=== PATIENT | female | born 1965 | race Caucasian/White ===

== ENCOUNTER 2019-12-22 12:59 | Outpatient (CLI) | payer MEDICARE, MEDICAID, SELFPAY ==
--- NOTE | 2019-12-22 13:45 | MR_ITS ---
WS: [id number] MRI LEFT SHOULDER NONCONTRAST TECHNIQUE: Sagittal T2, coronal T1, T2 and proton density imaging. Axial gradient PDE imaging. CLINICAL INFORMATION: pain COMPARISON: None. FINDINGS: Moderate degenerative arthritis at the AC joint. Small subacromial/subdeltoid effusion. Edema at the AC joint. Slight downsloping of the acromion. Mild thinning of the supraspinatus tendon distally with mild T2 signal normality consistent with tendinopathy. Fluid signal abnormality along t he superficial distal tendon fibers suspicious for small bursal surface tear. Normal infraspinatus. N ormal teres minor. Subscapularis tendon is normal distally. Normal biceps tendon in the bicipital groove. Mild degenerative fraying of the glenoid labrum. No emerita ss labral tears. MR/MR shoulder LT wo con* [id number] IMPRESSION: 1. Moderate degenerative arthritis at the AC joint with mild downsloping of th e acromion. Fluid within the subacromial/subdeltoid bursa. 2. Narrowing of the subacromial space with mild thinning of the distal suprasp inatus tendon with T2 signal abnormality consistent with tendinopathy. Small am ount of fluid along the distal tendon sheath suspicious for a tiny bursal surfa ce tear. 3. No full-thickness rotator cuff tears. 4. Rotator cuff is otherwise normal in appearance. 5. Normal biceps in the bicipital groove.
== END 2019-12-22 13:00 | disposition home or self-care (01) ==
LOC: RADSHAW 13:04
PROVIDERS: Family Provider Student in an Organized Health Care Education/Training Program; PCP Family Medicine; Visit Provider Specialist
DX: M19.012 Primary osteoarthritis, left shoulder (principal); M25.512 Pain in left shoulder
CPT/HCPCS: 73221

== ENCOUNTER → 2020-01-18 10:04 | Outpatient (BNVA) | payer MEDICARE, MEDICAID, SELFPAY | PROVIDERS: Family Provider Student in an Organized Health Care Education/Training Program; PCP Family Medicine; Visit Provider Specialist | DX: G43.909 Migraine, unspecified, not intractable, without status migrainosus (principal); G43.711 Chronic migraine without aura, intractable, with status migrainosus | CPT/HCPCS: 99203 ==

== ENCOUNTER → 2020-01-25 14:33 | Outpatient (BNVA) | payer MEDICARE, MEDICAID, SELFPAY | PROVIDERS: Family Provider Student in an Organized Health Care Education/Training Program; PCP Family Medicine; Visit Provider Specialist | DX: M54.81 Occipital neuralgia (principal); G43.711 Chronic migraine without aura, intractable, with status migrainosus; Z79.891 Long term (current) use of opiate analgesic | CPT/HCPCS: 64450; 99212; J1030; J3490 ==

== ENCOUNTER → 2020-04-28 10:12 | Outpatient (BNVA) | payer MEDICARE, MEDICAID, SELFPAY | PROVIDERS: Family Provider Student in an Organized Health Care Education/Training Program; PCP Family Medicine; Visit Provider Specialist | DX: Z98.890 Other specified postprocedural states (principal) | CPT/HCPCS: 73502 ==

== ENCOUNTER → 2020-05-30 08:26 | Outpatient (BNVA) | payer MEDICARE, MEDICAID, SELFPAY | PROVIDERS: Family Provider Student in an Organized Health Care Education/Training Program; PCP Family Medicine; Visit Provider Internal Medicine | DX: Z12.11 Encounter for screening for malignant neoplasm of colon (principal) | CPT/HCPCS: 87635 ==

== ENCOUNTER 2020-06-01 06:01 | Day surgery (SDC) | payer MEDICARE, MEDICAID, SELFPAY ==
[2020-05-30 14:19] VITALS: BMI 36.0
[2020-06-01 06:31] VITALS: TEMP 36.3; BMI 36.0
--- NOTE | 2020-06-01 06:32 | W.PM.OPSFHP ---
Same Day Surgery H&P Indication for Procedure/HPI DATE OF PROCEDURE: June 01, 2020 CHIEF COMPLAINT/INDICATIONFOR SURGICAL PROCEDURE: I had history of ulcer in my stomach PREOP DIAGNOSIS: History of peptic ulcer disease and screening colonoscopy PLANNED PROCEDRUE: Operation Date: 06/01/20 07:00 Proposed Procedures p EGD 91245 K21.9(Not Applicable) - Grey Campbell MD s Colonoscopy 31323 Z12.11(Not Applicable) - Grey Campbell MD Previous clinic visit ; patient comes today as follow-up and has a current weight of 238 pound, she reports that she lost about 1 pound since last encounter,, she was prescribed phentermine but she did not have the medicine yet, patient continues to show interest in weight loss and she reports history of gastric ulcer and has been on PPI therapy, patient also reports that she did not have a screening colonoscopy before. She denies any hematemesis or bleeding per rectum. Interim history 06/01/2020 Patient comes today to the GI lab with the plan to have a diagnostic EGD and screening colonoscopy. Patient reports to me that she is not taking phentermine any more. ROS All systems have been reviewed negative except as per the above or per problem list Medications/Allergies* Home Medications Medication Instructions Recorded Confirmed Type duloxetine 60 mg capsule,delayed 60 mg PO BID 12/09/19 05/30/20 History release lisinopril 20 1 tab PO BID 12/09/19 05/30/20 History mg-hydrochlorothiazide 25 mg tablet oxycodone-acetaminophen 10 mg-325 1 tab PO Q8H PRN 12/09/19 05/30/20 History mg tablet pravastatin 10 mg tablet 10 mg PO DAILY 12/09/19 05/30/20 History omeprazole 20 mg capsule,delayed 20 mg PO DAILY 03/24/20 05/30/20 History release dulaglutide 0.75 mg/0.5 mL 0.75 mg SUBCUT .weekly ml 04/28/20 05/30/20 History subcutaneous pen injector Allergies/Adverse Reactions Allergy/AdvReac Type Severity Reaction Status Date / Time amitriptyline Allergy unknown Verified 06/01/20 06:33 atorvastatin [From Lipitor] Allergy unknown Verified 06/01/20 06:33 carisoprodol [From Soma] Allergy unknown Verified 06/01/20 06:33 erythromycin base Allergy unknown Verified 06/01/20 06:33 glycopyrrolate Allergy unknown Verified 06/01/20 06:33 [From Utibron Neohaler] indacaterol Allergy unknown Verified 06/01/20 06:33 [From Utibron Neohaler] morphine Allergy unknown Verified 06/01/20 06:33 simvastatin [From Zocor] Allergy unknown Verified 06/01/20 06:33 Fxkbugo-Fup-Bnp Reductase Allergy unknown Verified 06/01/20 06:33 Inhibitor topiramate [From Topamax] Allergy unknown Verified 06/01/20 06:33 Pertinent History/Comorbid Conditions* Medical History (Updated 05/17/20 @ 08:34 by Kristin Su MD) Accelerated essential hypertension Avascular necrosis of bone of right hip Diabetes GERD (gastroesophageal reflux disease) History of gastric ulcer Obesity Rheumatoid arthritis Surgical History (Updated 04/28/20 @ 12:04 by Kristin Su MD) History of right hip replacement History of surgery on wrist Hx of cholecystectomy Hx of shoulder surgery Family History (Updated 12/09/19 @ 14:12 by Isaura Page LPN) Diabetes CAD (coronary artery disease) Hypertension Social History Smoking and tobacco status: never smoked Alcohol intake: never Pertinent Exam Findings alert, oriented x 3, clear to auscultation bilaterally, regular rate & rhythm and procedure specific exam findings (Abdominal examination nontender nondistended soft, obese) Recommendations Surgery/Procedure today (Diagnostic EGD with possible biopsy and colonoscopy with possible biopsy and possible polypectomy. Informed consent per) Coding Level of Care Code Acute Flood Control Engineer for Nelson Singh
[2020-06-01] MEDS: sodium chloride 0.9% 1,000 ML 30 ML IV (06:40)
--- NOTE | 2020-06-01 06:43 | ANES.PREANE2 ---
Pre-Anesthetic Assessment Pre-Anesthetic Assessment: Height/Weight: Height 1.7 m Weight 104.326 kg Temp 97.3 F L 06/01/20 06:31 Preop Diagnosis: History of peptic ulcer disease and screening colonoscopy Proposed Procedure: Operation Date: 06/01/20 07:00 Proposed Procedures p EGD 32048 K21.9(Not Applicable) - Grey Campbell MD s Colonoscopy 90634 Z12.11(Not Applicable) - Grey Campbell MD Was Beta Khadra taken within 24 hours: N/A Last intake: Intake Last Liquid Date 05/31/20 Last Liquid Time 23:30 Last Solid Date 05/30/20 Social: Social History: No alcohol and No tobacco Exam: Pre-Anes Outpt Exam: alert, oriented x 3, clear to auscultation bilaterally and regular rate & rhythm Airway: Submandibular: WNL Cervical ROM: WNL MP: 3 Dentition: Full History/ROS: No significant history except as noted and No significant complaints Pulmonary: Pulmonary: None reported CV/HEM: CV/HEM: HTN : : None reported Hepatic: Hepatic: None reported GI: GI: None reported Metabolic: Metabolic: DM and Morbid obesity Musc/skel: Musc/skel: OA/DJD Neuropsych: Neuropsych: Depression Anesthetic Plan: ASA status: 2 PFSH Anesthesia PFSH: Medical History (Updated 05/17/20 @ 08:34 by Kristin Su MD) Accelerated essential hypertension Avascular necrosis of bone of right hip Diabetes GERD (gastroesophageal reflux disease) History of gastric ulcer Obesity Rheumatoid arthritis Surgical History History of right hip replacement History of surgery on wrist Hx of cholecystectomy Hx of shoulder surgery Family History Other CAD (coronary artery disease) Diabetes Hypertension Social History Smoking and tobacco status: never smoked Alcohol intake: never Data Anesthesia Cardiac Studies: No Data to Display
[2020-06-01] MEDS: sodium chloride 0.9% 500 ML 999 ML IV (07:01)
[2020-06-01 07:29] VITALS: BP 106/79; PULSE 87; RESP 16; TEMP 36.4; O2SAT 96
--- NOTE | 2020-06-01 07:42 | ANE.PACU2 ---
Inpatient post-anesthesia follow up: Airway intact: Yes Vital signs: Temperature 97.3 F Pulse Rate Respiratory Rate Blood Pressure Pulse Oximetry Oxygen Delivery Me thod Oxygen Flow Rate Fraction of Inspir ed Oxygen Hydration adequate: Yes Nausea and vomiting: No Mental status: Baseline
[2020-06-01 07:43] VITALS: BP 112/82; PULSE 82; RESP 16; O2SAT 100
[2020-06-02 10:03] LABS: H. Pylori / CLO Test Positive
== END 2020-06-01 07:55 | disposition home or self-care (01) ==
PROVIDERS: PCP Family Medicine; Visit Provider Surgery
PROC: 0DJ08ZZ Inspection of Upper Intestinal Tract, Via Natural or Artificial Opening Endoscopic (ICD-10-PCS; CPT 43235; principal; 2020-06-01 07:00)
PROC: 0DJD8ZZ Inspection of Lower Intestinal Tract, Via Natural or Artificial Opening Endoscopic (ICD-10-PCS; CPT 45378; 2020-06-01 07:00)
DX: Z12.11 Encounter for screening for malignant neoplasm of colon (principal); K57.30 Diverticulosis of large intestine without perforation or abscess without bleeding; K29.70 Gastritis, unspecified, without bleeding; K21.9 Gastro-esophageal reflux disease without esophagitis; I10 Essential (primary) hypertension; E11.9 Type 2 diabetes mellitus without complications; E66.01 Morbid (severe) obesity due to excess calories; M19.90 Unspecified osteoarthritis, unspecified site; M06.9 Rheumatoid arthritis, unspecified; Z79.899 Other long term (current) drug therapy
CPT/HCPCS: 12345; 43239; 45378; 87077; J2704; J7030

== ENCOUNTER → 2020-06-08 10:16 | Outpatient (BNVA) | payer MEDICARE, MEDICAID, SELFPAY | PROVIDERS: PCP Family Medicine; Visit Provider Internal Medicine | DX: G56.00 Carpal tunnel syndrome, unspecified upper limb (principal); Z20.828 Contact with and (suspected) exposure to other viral communicable diseases | CPT/HCPCS: 87635 ==

== ENCOUNTER 2020-06-10 10:07 | Day surgery (SDC) | payer MEDICARE, MEDICAID, SELFPAY ==
[2020-06-09 15:50] VITALS: BMI 36.1
[2020-06-10] VITALS (8 sets, daily range): BP systolic 103–124; BP diastolic 71–95; PULSE 88–98; RESP 16–21; TEMP 36–36.5; O2SAT 94–100
[2020-06-10] MEDS: CELEcoxib 200 mg Capsule 400 MG PO (10:58)
--- NOTE | 2020-06-10 11:00 | ANES.PREANE2 ---
Pre-Anesthetic Assessment Pre-Anesthetic Assessment: Height/Weight: Height 1.7 m Weight 104.78 kg Temp Pulse Resp BP Pulse Ox 96.8 F L 96 18 116/71 99 06/10/20 10:51 06/10/20 10:51 06/10/20 10:51 06/10/20 10:51 06/10/20 10:51 Preop Diagnosis: Left shoulder impingement Proposed Procedure: Operation Date: 06/10/20 13:15 Proposed Procedures p Open Distal Clavicle Resection w/ acromioplasty 81095 M75.42 M75.82 M19.019(Not Applicable) - Kristin Su MD s Poss Rotator Cuff Repair(Not Applicable) - Kristin Su MD Familial anesthetic complications: PONV Was Beta Khadra taken within 24 hours: N/A Last intake: Intake Last Liquid Date 06/09/20 Last Liquid Time 23:00 Last Solid Date 06/09/20 Last Solid Time 19:00 Social: Social History: No alcohol and No tobacco Exam: Pre-Anes Outpt Exam: alert, oriented x 3, clear to auscultation bilaterally and regular rate & rhythm Airway: Cervical ROM: WNL MP: 2 Dentition: Full CV/HEM: CV/HEM: HTN GI: GI: GERD Metabolic: Metabolic: Hyperlipidemia Anesthetic Plan: ASA status: 2 Anesthesia: General and Regional (specify below) Risk of > 500 ml blood loss (7ml/kg in children): No Meds/Allergies Current Medications: Current Medications Generic Name Dose Route Start Last Admin Trade Name Freq PRN Reason Stop Dose Admin Sodium Chloride 1,000 mls @ 30 ml s/hr 06/10/20 08:30 06/10/20 11:10 Sodium Chloride 0.9% IV 06/11/20 08:29 30 mls/hr .Q24H MARTHA Administration PFSH Anesthesia PFSH: Medical History (Updated 06/09/20 @ 07:54 by Grey Campbell MD) Accelerated essential hypertension Avascular necrosis of bone of right hip Diabetes GERD (gastroesophageal reflux disease) History of gastric ulcer Obesity Rheumatoid arthritis Surgical History History of right hip replacement History of surgery on wrist Hx of cholecystectomy Hx of shoulder surgery Family History Other CAD (coronary artery disease) Diabetes Hypertension Social History Smoking and tobacco status: never smoked Alcohol intake: never Data Anesthesia Other Labs: Laboratory Results - last 48 hr 06/10/20 11:07 POC Glucose 181 Cardiac Studies: No Data to Display
[2020-06-10] MEDS: sodium chloride 0.9% 1,000 ML 30 ML IV (11:10)
[2020-06-10 11:24] LABS: Glucose Point of Care 181 mg/dL (70-110)
--- NOTE | 2020-06-10 11:26 | P.HPUD_ITS ---
Surgery/Procedure H&P Update DATE OF PROCEDURE: June 10, 2020 DATE H&P PERFORMED: 05/16/20 H&P UPDATE INFORMATION: I have reviewed H&P completed within last 30 days, I have examined patient prior to procedure, No changes to prior documentation and H&P is in [facility] [place] on date indicated PREOP DIAGNOSIS: Left shoulder impingement PLANNED PROCEDURE: Operation Date: 06/10/20 13:15 Proposed Procedures p Open Distal Clavicle Resection w/ acromioplasty 91072 M75.42 M75.82 M19.019(Not Applicable) - Kristin Su MD s Poss Rotator Cuff Repair(Not Applicable) - Kristin Su MD Related Problem List Diagnoses (1) Impingement syndrome, shoulder, left: (2) Acromioclavicular joint arthritis: Qualifiers: Laterality: left Qualified Code(s): M19.012 - Primary osteoarthritis, left shoulder
[2020-06-10] MEDS: midazolam 1 mg/mL INJ 5 ML 5 MG IVP (11:30)
--- NOTE | 2020-06-10 11:33 | ANES.PROC ---
Anesthesia Procedures Procedure/Date: 06/10/20 Nerve Block ^: Nerve Block 1: Main Anesthesia: general anesthesia Time Out Performed: Yes Consent: requested by attending/covering physician, from patient, risks and benefits reviewed and patient agrees to proceed Nerve block location: interscalene (L) Anesthesia monitors applied: pulse oximetry, EKG, BP cuff and oxygen Anesthetic Used: ropivicaine 0.5% and with decadron (3 mg) Amount of anesthesia used (mL): 20 Ultrasound used to: recognize landmarks and visualize and ID interscalene groove Interscalene/Femoral BLK: 2 stimuplex 22 g needle used for position and inplane approach, visualize local anesthetic spread and no vascular puncture identified Injection: neg aspiration of heme Patient Tolerated Procedure: well and no complications Complications: none
[2020-06-10 11:49] LABS: Basophils # 0.1 10^3/uL (0.0-0.1); Basophils % 0.6 %; Eosinophils # 0.4 10^3/uL (0.0-0.8); Eosinophils % 2.9 %; Hematocrit 48.8 % (37.0-47.0); Hemoglobin 15.2 g/dL (11.5-15.3); Lymphocytes # 2.3 10^3/uL (0.8-4.8); Lymphocytes % 18.9 %; Mean Corpuscular HGB Conc 31.1 g/dL (30.0-36.0); Mean Corpuscular Hemoglobin 27.5 pg (28.0-34.0); Mean Corpuscular Volume 88.2 fL (81-99); Mean Platelet Volume 9.4 fL (7.4-10.4); Monocytes # 0.6 10^3/uL (0.2-0.9); Monocytes % 4.8 %; Neutrophils # 8.85 10^3/uL (1.8-7.7); Neutrophils % 72.6 %; Nucleated Red Blood Cells % 0 %; Platelet Count 514 10^3/cmm (130-400); Red Blood Count 5.53 10^6/uL (4.1-5.3); Red Cell Distribution Width 12.7 % (12.1-15.1); White Blood Count 12.2 10^3/uL (4.0-10.0)
[2020-06-10 12:06] LABS: Alanine Aminotransferase 26 U/L (0-33); Albumin Level 5.1 g/dL (3.5-5.2); Alkaline Phosphatase 132 IU/L (35-105); Anion Gap 17.6 (5-19); Aspartate Amino Transferase 30 U/L (0-32); Blood Urea Nitrogen 16 mg/dL (6-20); Carbon Dioxide 27 mmol/L (22-29); Chloride 96 mmol/L (98-107); Creatinine Clr Calc Pharmacy 103.0319; Globulin 3.8 g/dL (1.3-4.6); Glucose 190 mg/dL (65-115); Osmolality Calculated 285 mOsm/kg (285-295); Potassium 3.6 mmol/L (3.5-5.1); Sodium 137 mmol/L (136-145); Total Bilirubin 0.2 mg/dL (0.15-1.2); Total Protein 8.9 g/dL (6.6-8.7)
[2020-06-10] MEDS: vancomycin 1,000 MG in sodium chloride 0.9% 250 ML 250 MG IV (12:10)
[2020-06-10] MEDS: scopolamine 1.5 Patch 1 PATCH TRANSDERMA (12:40)
--- NOTE | 2020-06-10 13:29 | SUR.OPER ---
Called and notified mother of surgical start and progress.
[2020-06-10] MEDS: vancomycin 1,000 MG SDV 1000 MG IRRIGATION (13:56)
--- NOTE | 2020-06-10 14:24 | ANE.PACU2 ---
Documented by User: Troy Duvall CRNA 06/10/20 14:25 Inpatient post-anesthesia follow up: Airway intact: Yes Vital signs: Temperature 96.8 F Pulse Rate 96 Respiratory Rate 18 Blood Pressure 116/71 Pulse Oximetry 99 Oxygen Delivery Me thod Room Air Oxygen Flow Rate Fraction of Inspir ed Oxygen Hydration adequate: Yes Nausea and vomiting: No Mental status: Baseline
--- NOTE | 2020-06-10 14:31 | SUR.PHASEI ---
PT AWAKE ALERT WITH GOOD RESP NOTED VSS LT SHOULDER DRESSING D/I FIRST ICE TO SITE, SHOULDER IMMOBILIZER IN PLACE. DISTAL FINGERS PINK WARM PT MOVES FINGERS TO COMMAND PT HAD BLOCK PRE SURGERY, PT DENIES PAIN AND NAUSEA.
--- NOTE | 2020-06-10 14:36 | P.OP_ITS ---
Operative Report Date of procedure: June 10, 2020 Pre-op Diagnosis: Left shoulder impingement with acromioclavicular degenerative arthritis Post-op diagnosis: same Post-op Findings: Impingement and degenerative changes left acromioclavicular joint Procedure Done: Left shoulder open acromioplasty and distal clavicle resection Specimens removed/disposition: Bone, disposed of Pathology: none sent Surgeon: Kristin Su E Business Project Manager: [facility] OR technicians Anesthesia: General (With supplemental regional block) Estimated blood loss (mL): 10 IV fluids (mL): 700 Urine output (mL): 0 Complications: None Findings: Significant impingement with rotator cuff inflammation, but no evidence of discrete tear. Degenerative osteoarthritis of the acromioclavicular joint. Condition: stable Disposition: PACU (Then to same-day surgery for discharge to home.) Brief History: This 55-year-old woman who is known to me from her other issues presented with complaints of severe left shoulder pain. She had MRI findings consistent with impingement in the left shoulder as well as degenerative osteoarthritic change within the acromioclavicular joint. There was question of possible small rotator cuff tear as well, but this was felt to be primarily tendinitis and inflammation. Procedure: The patient was brought to the operating theater and underwent general intubated anesthesia, ASA 2, with preoperative regional block. The patient was placed in a beachchair position and subsequently the left upper extremity was prepped and draped in the usual fashion utilizing DuraPrep. The arm was draped free. A surgical pause was performed prior to commencement of the surgical procedure. At the time of the surgical pause, we confirmed the site and side of surgery as well as administration of appropriate preoperative antibiotics vancomycin 1 g. MRI was also reviewed at that time. Following the surgical pause, an incision was made at approximately the level of the acromioclavicular joint extending across the anterolateral corner of the acromion and distally as necessary. Care was taken to avoid injury to the axillary nerve by limiting the distal extent of the incision. Dissection continued through skin and soft tissues using a scalpel. Hemostasis was obtained using electrocautery. Soft tissues were elevated off the acromion. An acromioplasty was then accomplished using a combination of a saw and a power rasp. With this, we were able to remove compression caused by the acromion. The rotator cuff was then evaluated to look for tears. There was bursal inflammation as well as rotator cuff inflammation, but there was no evidence of discrete tear. The shoulder was placed through full range of motion. We esta blish that adequate acromion had been resected. We also establish there was no evidence of jyoti rotator cuff tear. The acromioclavicular joint was exposed. A saw was then used to resect the distal clavicle without difficulty. The undersurface of the clavicle was palpated and was slightly further debrided. A power rasp was used to further smooth the area. When this was felt to be adequately resected, the wound was irrigated. Attention was then directed to closure. The wound was irrigated and closure was accomplished with 0 Vicryl in the capsular tissues overlying the acromioclavicular joint area as well as over the acromion and down into the deltoid muscle. 3-0 Monocryl was used to close the subcutaneous tissues followed by 4-0 Monocryl subcuticular closure. This was followed by Exofin, Steri-Strips, and OpSite. The patient was placed in a sling and was returned to the recovery room in satisfactory condition. The patient will be discharged to home to follow-up with me in the office as scheduled. There were no complications and no specimens. Associated Problem List Diagnoses (1) Impingement syndrome, shoulder, left: (2) Acromioclavicular joint arthritis: Qualifiers: Laterality: left Qualified Code(s): M19.012 - Primary osteoarthritis, left shoulder
== END 2020-06-10 15:43 | disposition home or self-care (01) ==
PROVIDERS: PCP Family Medicine; Visit Provider Specialist
PROC: (CPT 23120; principal; 2020-06-10 13:15)
DX: M75.42 Impingement syndrome of left shoulder (principal); M19.012 Primary osteoarthritis, left shoulder; I10 Essential (primary) hypertension; E11.9 Type 2 diabetes mellitus without complications; E66.9 Obesity, unspecified; Z68.36 Body mass index [BMI] 36.0-36.9, adult
CPT/HCPCS: 23420; 12345; 36415; 36416; 80053; 82962; 85025; 96365; 96374; J0131; J1100; J2250; J2370; J2405; J2704; J2710; J2795; J3010; J3370; J3490; J7030; J7050

== ENCOUNTER → 2020-07-11 11:40 | Outpatient (BNVA) | payer MEDICARE, MEDICAID, SELFPAY | PROVIDERS: PCP Family Medicine; Visit Provider Specialist | DX: M25.512 Pain in left shoulder (principal); M19.012 Primary osteoarthritis, left shoulder; S43.102A Unspecified dislocation of left acromioclavicular joint, initial encounter; X58.XXXA Exposure to other specified factors, initial encounter | CPT/HCPCS: 73030 ==

== ENCOUNTER 2020-08-02 13:06 | Outpatient (CLI) | payer MEDICARE, MEDICAID, SELFPAY ==
--- NOTE | 2020-08-02 13:12 | MM_ITS ---
WS: [id number] BILATERAL DIGITAL DIAGNOSTIC MAMMOGRAM MAMMOGRAPHY WITH CAD CLINICAL INFORMATION: INCONCLUSIVE MAMMOGRAPHY COMPARISON: Outside examination June 30, 2020 TECHNIQUE: Bilateral CC, MLO, and ML views. FINDINGS: Scattered fibroglandular densities bilaterally. Bilateral intramammary lymph nodes with fatty cierra. E xaggerated cc view demonstrates previously described incidental intramammary lymph node with fatty hi lum. A few tiny stable punctate calcifications. Additional suspected intramammary lymph nodes left breast appear unchanged. Ultrasound is pending. ULTRASOUND BREAST BILATERAL TECHNIQUE: Ultrasound bilateral breast focused area of concern. CLINICAL INFORMATION: INCONCLUSIVE MAMMOGRAPHY COMPARISON: None. FINDINGS: Ultrasound right breast 10:00 position 6 cm from the nipple. Ultrasound left breast at the 3 4 and 5: 00 positions. Right breast ultrasound demonstrates 1.4 x 0.5 x 1.2 cm intramammary lymph node with normal echogenic fatty hilum. Ultrasound left breast demonstrates an intramammary lymph node measuring 1.4 x 0.6 x 0.9 cm 3:00 posi tion with normal echogenic fatty hilum. No other lesions. No suspicious lesions to target for biopsy. Recommend return to annual screening mammography. MM/[place] [facility] [place] [id number] IMPRESSION: BI-RADS: 2-Benign FOLLOW UP: 1 Year Follow-up Recommend return to annual screening mammography.
== END 2020-08-02 13:07 | disposition home or self-care (01) ==
LOC: RADSHAW 13:10
PROVIDERS: PCP Family Medicine; Visit Provider Family Medicine
DX: R92.2 Inconclusive mammogram (principal)
CPT/HCPCS: 76642; 77066

== ENCOUNTER → 2020-10-03 15:31 | Outpatient (BNVA) | payer MEDICARE, MEDICAID, SELFPAY | PROVIDERS: PCP Family Medicine; Visit Provider Specialist | DX: M25.712 Osteophyte, left shoulder (principal); M25.512 Pain in left shoulder | CPT/HCPCS: 73030 ==

== ENCOUNTER → 2020-10-11 08:45 | Outpatient (BNVA) | payer MEDICARE, MEDICAID, SELFPAY | PROVIDERS: PCP Family Medicine; Visit Provider Specialist | DX: M54.81 Occipital neuralgia (principal); G43.711 Chronic migraine without aura, intractable, with status migrainosus | CPT/HCPCS: 64405; 99213; J1030; J3490 ==

== ENCOUNTER → 2021-01-30 10:01 | Outpatient (BNVA) | payer MEDICARE, MEDICAID, SELFPAY | PROVIDERS: PCP Family Medicine; Visit Provider Specialist | DX: M54.81 Occipital neuralgia (principal); G43.711 Chronic migraine without aura, intractable, with status migrainosus; M79.7 Fibromyalgia | CPT/HCPCS: 64405; 99214; J1030; J3490 ==

== ENCOUNTER → 2021-07-31 10:01 | Outpatient (BNVA) | payer MEDICARE, MEDICAID, SELFPAY | PROVIDERS: PCP Family Medicine; Visit Provider Specialist | DX: M54.81 Occipital neuralgia (principal); G43.711 Chronic migraine without aura, intractable, with status migrainosus; E66.9 Obesity, unspecified | CPT/HCPCS: 64405; 64450; 99213 ==

== ENCOUNTER → 2022-03-21 13:15 | Outpatient (BNVA) | payer MEDICARE, MEDICAID, SELFPAY | PROVIDERS: PCP Family Medicine; Referring Provider Nurse Practitioner Family; Visit Provider Specialist | DX: M77.8 Other enthesopathies, not elsewhere classified (principal); M75.41 Impingement syndrome of right shoulder; M25.511 Pain in right shoulder | CPT/HCPCS: 73030; 99213 ==

== ENCOUNTER → 2022-03-28 12:48 | Outpatient (BNVA) | payer MEDICARE, MEDICAID, SELFPAY | PROVIDERS: PCP Family Medicine; Visit Provider Otolaryngology | DX: S09.91XA Unspecified injury of ear, initial encounter (principal); H60.91 Unspecified otitis externa, right ear; H92.03 Otalgia, bilateral; E66.9 Obesity, unspecified; Z68.36 Body mass index [BMI] 36.0-36.9, adult; X58.XXXA Exposure to other specified factors, initial encounter | CPT/HCPCS: 99202; 99203 ==

== ENCOUNTER → 2022-05-02 13:54 | Outpatient (BNVA) | payer MEDICARE, MEDICAID, SELFPAY | PROVIDERS: PCP Family Medicine; Visit Provider Specialist | DX: G43.711 Chronic migraine without aura, intractable, with status migrainosus (principal) | CPT/HCPCS: 99213; 99214 ==

== ENCOUNTER → 2022-06-18 09:05 | Outpatient (BNVA) | payer MEDICARE, MEDICAID, SELFPAY | PROVIDERS: PCP Family Medicine; Visit Provider Specialist | DX: M75.42 Impingement syndrome of left shoulder (principal); M19.012 Primary osteoarthritis, left shoulder; M75.82 Other shoulder lesions, left shoulder | CPT/HCPCS: 99213 ==

== ENCOUNTER 2022-07-20 13:33 | Outpatient (CLI) | payer MEDICARE, MEDICAID, SELFPAY ==
--- NOTE | 2022-07-20 13:47 | MM_ITS ---
WS: [id number] BILATERAL SCREENING DIGITAL TOMOSYNTHESIS MAMMOGRAM WITH CAD HISTORY: SCREEN COMPARISON: 06/30/2020 and 08/02/2020 Bilateral CC and MLO views with tomosynthesis and synthetic mammography submitted. Computer aided det ection analyzed. Breast composition: There are scattered areas of fibroglandular density. No suspicious masses, microc alcifications or architectural distortion. Bilateral breast lymph nodes and calcifications. No suspic ious mass. No nodule. MM/[id number] IMPRESSION: BI-RADS: 2-Benign FOLLOW UP: 1 Year Follow-up
== END 2022-07-20 13:34 | disposition home or self-care (01) ==
LOC: RAD 13:34
PROVIDERS: PCP Family Medicine; Visit Provider Nurse Practitioner Family
DX: Z12.31 Encounter for screening mammogram for malignant neoplasm of breast (principal)
CPT/HCPCS: 77063; 77067

== ENCOUNTER → 2022-10-09 10:19 | Outpatient (BNVA) | payer BC, MEDICAID, SELFPAY | PROVIDERS: PCP Family Medicine; Visit Provider Internal Medicine Rheumatology | DX: R76.8 Other specified abnormal immunological findings in serum (principal); M19.90 Unspecified osteoarthritis, unspecified site; Z11.59 Encounter for screening for other viral diseases; M45.6 Ankylosing spondylitis lumbar region; Z79.899 Other long term (current) drug therapy | CPT/HCPCS: 36415; 71046; 73030; 73130; 73630; 80076; 82565; 85025; 85651; 86140; 86160; 86162; 86200; 86235; 86255; 86376; 86480; 86704; 86803; 86812; 87340 ==

== ENCOUNTER → 2023-09-02 08:01 | Outpatient (BNVA) | payer BC, MEDICAID, SELFPAY | PROVIDERS: PCP Family Medicine; Visit Provider Nurse Practitioner | DX: Z96.641 Presence of right artificial hip joint (principal); M54.41 Lumbago with sciatica, right side | CPT/HCPCS: 73502 ==

== ENCOUNTER → 2023-09-16 14:00 | Outpatient (BNVA) | payer BC, MEDICAID, SELFPAY | PROVIDERS: PCP Family Medicine; Visit Provider Internal Medicine Rheumatology | DX: M05.79 Rheumatoid arthritis with rheumatoid factor of multiple sites without organ or systems involvement (principal); Z79.899 Other long term (current) drug therapy; L56.8 Other specified acute skin changes due to ultraviolet radiation; Z71.85 Encounter for immunization safety counseling | CPT/HCPCS: 36415; 80076; 82565; 85025; 86140 ==

== ENCOUNTER 2024-07-27 09:10 | Emergency (ER) | payer BC, MEDICAID, SELFPAY ==
[2024-07-27 09:22] VITALS: BP 123/75; PULSE 95; RESP 18; TEMP 37.1; O2SAT 95; BMI 38.3
--- NOTE | 2024-07-27 09:52 | ED_ITS ---
HPI - Abdominal Pain 2 General: Chief Complaint: Abdominal Pain Stated Complaint: several abd pain Time Seen by Provider: 07/27/24 09:30 History of Present Illness: 59-year-old female presents to the [facility] ency room complaining of abdominal pain that began yesterday worsened throughout the night. She has been very nauseated but has not vomited. She has been very constipated states her last bowel movement was 2 days ago. She has tried MiraLAX fiber Gummies other [id number] remedies with no relief. She denies any fever sweats or chills. She has previously had a cholecystectomy most of discomfort is in the upper abdomen epigastric left and right upper quadrants. She denies any dysuria urgency or frequency Associated Symptoms: Reports constipation and nausea; Denies chills, coffee ground emesis, diarrhea, dysuria, fever(s), hematochezia, hematemesis, melena and vomiting Related Data Home Medications Medication Instructions Recorded Confirmed duloxetine 60 mg capsule,delayed 60 mg PO BID 12/09/19 07/27/24 release (Cymbalta) lisinopril 20 1 tab PO BID 12/09/19 07/27/24 mg-hydrochlorothiazide 25 mg tablet omeprazole 20 mg capsule,delayed 20 mg PO PRN PRN Acid Reflux 03/24/20 07/27/24 release dulaglutide 0.75 mg/0.5 mL 0.75 mg SUBCUT .weekly 04/28/20 07/27/24 subcutaneous pen injector (Trulicity) linaclotide 72 mcg capsule 144 mcg PO DAILY 08/17/20 07/27/24 (Linzess) furosemide 20 mg tablet 20 mg PO QAM 10/11/20 07/27/24 alprazolam 0.5 mg tablet 0.25 mg PO BID 10/09/22 07/27/24 methocarbamol 500 mg tablet 500 mg PO BID PRN Pain 10/09/22 07/27/24 metronidazole 0.75 % topical gel 1 applic topical BID PRN bacteria 10/09/22 07/27/24 insulin glargine 100 unit/mL 60 unit SUBCUT BID 07/27/24 07/27/24 subcutaneous solution (Lantus U-100 Insulin) insulin lispro 100 unit/mL See Rx Instructions .Route .COMPLEX 07/27/24 07/27/24 subcutaneous solution inulin 2 gram chewable tablet 4 g PO DAILY 07/27/24 07/27/24 (Fiber Gummies) Previous Rx's Medication Instructions Recorded clobetasol 0.05 % topical ointment 1 applic topical BID 2 weeks #60 06/18/22 grams triamcinolone acetonide 0.1 % 1 applic topical BID #80 grams 06/18/22 topical ointment celecoxib 200 mg capsule (Celebrex) 200 mg PO BID #60 caps 01/07/23 erenumab-aooe 140 mg/mL See Rx Instructions .Route 11/19/23 subcutaneous auto-injector .COMPLEX #1 mL (Aimovig Autoinjector) sumatriptan succinate 100 mg tablet See Rx Instructions .Route 11/19/23 .COMPLEX #10 tabs zonisamide 100 mg capsule See Rx Instructions .Route 12/10/23 .COMPLEX #360 caps ondansetron HCl 4 mg tablet 4 mg PO Q6H PRN nausea and 07/27/24 vomiting #20 tabs Allergies Allergy/AdvReac Type Severity Reaction Status Date / Time baclofen Allergy Intermediate swelling Verified 10/16/23 12:22 sulfasalazine Allergy Mild ADR-Gastrointestinal Verified 10/16/23 12:22 Upset amitriptyline Allergy unknown Verified 10/16/23 12:22 atorvastatin [From Lipitor] Allergy unknown Verified 10/16/23 12:22 carisoprodol [From Soma] Allergy unknown Verified 10/16/23 12:22 erythromycin base Allergy unknown Verified 10/16/23 12:22 glycopyrrolate Allergy unknown Verified 10/16/23 12:22 [From Utibron Neohaler] indacaterol Allergy unknown Verified 10/16/23 12:22 [From Utibron Neohaler] morphine Allergy unknown Verified 10/16/23 12:22 simvastatin [From Zocor] Allergy unknown Verified 10/16/23 12:22 Otcczhz-TUR-JpV Reductase Allergy unknown Verified 10/16/23 12:22 Inhibitor [Rpmgikd-Pah-Pof Reductase Inhibitor] topiramate [From Topamax] Allergy unknown Verified 10/16/23 12:22 leflunomide AdvReac Mild hands feet Verified 10/16/23 12:22 hurt and cramp methotrexate AdvReac Mild hands feet Verified 10/16/23 12:22 hurt and cramp Review of Systems 2 Const: Denies: fever(s) or chills Card: Denies: chest pain Resp: Denies: dyspnea GI: Reports: abdominal pain, nausea and constipation; Denies: vomiting, hematemesis, coffee ground emesis, diarrhea, hematochezia or melena : Denies: dysuria, urinary frequency or urinary urgency Musc: Denies: neck pain or back pain Skin/Breast: Denies: rash PFSH ED 2 PFSH: Medical History (Updated 07/27/24 @ 12:09 by Joni Estrella DO) Right-sided low back pain with sciatica Immunization counseling Seropositive rheumatoid arthritis of multiple sites Phototoxicity due to sun Hx, no active lesions currently Insulin dependent diabetes mellitus High risk medication use Inflammatory arthritis Asthma Hypertension Depression with anxiety Hx of migraines Precancerous skin lesion Irritable bowel syndrome with constipation History of gastric ulcer GERD (gastroesophageal reflux disease) Accelerated essential hypertension Obesity Diabetes Rheumatoid arthritis Avascular necrosis of bone of right hip Surgical History (Updated 07/27/24 @ 09:59 by Joni Estrella DO) History of total right hip arthroplasty Surgery Done: Right Total Hip Arthroplasty. Date of Surgery: 09/10/2017. Surgeon: Dr. Kristin Su MD. Hx of cholecystectomy Hx of shoulder surgery History of surgery on wrist Family History Other CAD (coronary artery disease) Diabetes Family history of premature coronary artery disease Hypertension Lung disease Rheumatoid arthritis Denies family history of Lupus Chronic kidney disease (CKD) Stroke Social History Smoking and tobacco/nicotine status: never used tobacco/nicotine Alcohol intake: current Alcohol intake frequency: holidays/special occasions only Substance/Drug Use: never Physical Exam 2 Const: COMMON NORMALS: no acute distress GENERAL APPEARANCE: cooperative and comfortable ORIENTATION/CONSCIOUSNESS: Yes awake, Yes oriented to person, Yes oriented to place and Yes oriented to time HENMT: COMMON NORMALS: normocephalic, atraumatic and hearing grossly normal bilaterally HEAD & SCALP: normocephalic and atraumatic Resp: COMMON NORMALS: normal respiratory effort, No retractions, No use of accessory muscles and clear to auscultation bilaterally AUSCULTATION: clear to auscultation bilaterally Cardio: COMMON NORMALS: regular rate, regular rhythm and No murmurs present (Cardio) RATE: regular rate RHYTHM: regular rhythm GI: COMMON NORMALS: Soft to palpation and No hepatosplenomegaly present A USCULTATION: Yes normoactive bowel sounds PALPATION: Yes Soft to palpation, No Tenderness to palpation present (GI), No Guarding due to palpation present (GI) and Yes No hepatosplenomegaly present Extremity: COMMON NORMALS: normal to inspection, capillary refill normal, no clubbing, cyanosis or edema, no calf tenderness and no pedal edema Neuro: SENSORIUM/ORIENTATION: Yes oriented to person, Yes oriented to place and Yes oriented to time Skin: COMMON NORMALS: no rashes or lesions noted GENERAL SKIN EXAM: no rashes or lesions noted Course 2 Vital Signs: Vital signs: Vital Signs Temperature 98.7 F 07/27/24 09:22 Pulse Rate 101 H 07/27/24 12:31 Respiratory Rate 16 07/27/24 10:48 Blood Pressure 101/59 07/27/24 12:31 Pulse Oximetry 98 07/27/24 12:31 Oxygen Delivery Me thod Room Air 07/27/24 11:03 MDM - Abdominal Pain Medical Decision Making CT did not show emergent pathology. There is some dilation of the proximal small bowel and inflammation of stomach suggestive of gastroenteritis. No significant amount of retained stool. She does have a mild leukocytosis. She is feeling somewhat better she able to take p.o. fluids will discharge patient home increase p.o. fluid intake use Zofran as needed recommend that she hold her dulaglutide and follow-up with her primary care doctor within the next week sooner if not improving Medical Records I reviewed the patient's medical records. Lab Data I reviewed the patient's lab results. 07/27/24 10:47 07/27/24 10:47 Labs/Radiology: Radiology Impressions KUB X-Ray 07/27/24 09:56 IMPRESSION: Nonspecific bowel gas pattern. Abdomen/Pelvis CT 07/27/24 10:23 IMPRESSION: 1. Marked fluid distention of the stomach and mild small bowel hyperemia. Suspect a mild enteritis. There is no obstruction or mass identified. 2. Prior cholecystectomy. 3. No free air. 4. Umbilical and supraumbilical multifocal abdominal wall hernia containing fat only. 5. No ascites. Laboratory Results WBC 17.04 10^3/uL (3.29-11.43) H 07/27/24 10:47 RBC 5.19 10^6/uL (3.85-5.65) 07/27/24 10:47 Hgb 14.60 g/dL (11.27-16.99) 07/27/24 10:47 Hct 45.8 % (36-47) 07/27/24 10:47 MCV 88.2 fl (85-98) 07/27/24 10:47 MCH 28.1 pg (27-33) 07/27/24 10:47 MCHC 31.9 g/dL (30-55) 07/27/24 10:47 RDW 14.5 % (12.1-15.1) 07/27/24 10:47 Plt Count 468 10^3/cmm (157-399) H 07/27/24 10:47 MPV 8.8 fL (7.4-10.4) 07/27/24 10:47 Neut % (Auto) 81.7 % 07/27/24 10:47 Lymph % (Auto) 10.8 % 07/27/24 10:47 [place] % (Auto) 4.6 % 07/27/24 10:47 Eos % (Auto) 2.0 % 07/27/24 10:47 Baso % (Auto) 0.4 % 07/27/24 10:47 Neut # (Auto) 13.93 10^3/uL (1.8-7.7) H 07/27/24 10:47 Lymph # (Auto) 1.8 10^3/uL (0.8-4.8) 07/27/24 10:47 [place] # (Auto) 0.8 10^3/uL (0.2-0.9) 07/27/24 10:47 Eos # (Auto) 0.3 10^3/uL (0.0-0.8) 07/27/24 10:47 Baso # (Auto) 0.1 10^3/uL (0.0-0.1) 07/27/24 10:47 Nucleated RBC % (auto) 0 % 07/27/24 10:47 Nucleated RBCs # 0.0 /100WBC 07/27/24 10:47 Sodium 134 mmol/L (136-145) L 07/27/24 10:47 Potassium 4.0 mmol/L (3.5-5.1) 07/27/24 10:47 Chloride 91 mmol/L (98-107) L 07/27/24 10:47 Carbon Dioxide 29 mmol/L (22-29) 07/27/24 10:47 Anion Gap 18.0 (5-19) 07/27/24 10:47 BUN 22 mg/dL (6-20) H 07/27/24 10:47 Creatinine 1.0 mg/dL (0.5-0.9) H 07/27/24 10:47 GFR Calculation 57.1 mL/min (90-130) L 07/27/24 10:47 Glucose 202 mg/dL (65-115) H 07/27/24 10:47 Calculated Osmolality 287 mOsm/kg (285-295) 07/27/24 10:47 Calcium 9.3 mg/dL (8.5-10.5) 07/27/24 10:47 Total Bilirubin 0.5 mg/dL (0.15-1.2) 07/27/24 10:47 AST 16 U/L (0-32) 07/27/24 10:47 ALT 17 U/L (0-33) 07/27/24 10:47 Alkaline Phosphatase 135 U/L (35-105) H 07/27/24 10:47 Total Protein 8.0 g/dL (6.6-8.7) 07/27/24 10:47 Albumin 4.8 g/dL (3.5-5.2) 07/27/24 10:47 Globulin 3.2 g/dL (1.3-4.6) 07/27/24 10:47 Lipase 22 U/L (13-60) 07/27/24 10:47 Urine Color Yellow (Yellow) 07/27/24 10:08 Urine Appearance Cloudy (CLEAR) A 07/27/24 10:08 Urine pH 7.5 (5-7) 07/27/24 10:08 Ur Specific [place] 1.026 (1.005-1.030) 07/27/24 10:08 Urine Protein Trace (Negative) A 07/27/24 10:08 Urine Glucose (UA) Negative (Normal) 07/27/24 10:08 Urine Ketones Negative (Negative) 07/27/24 10:08 Urine Blood Negative (Negative) 07/27/24 10:08 Urine Nitrate Negative (Negative) 07/27/24 10:08 Urine Bilirubin Negative (Negative) 07/27/24 10:08 Urine Urobilinogen 2.0 mg/dL (Negative) H 07/27/24 10:08 Ur Leukocyte Esterase Negative (Negative) 07/27/24 10:08 Urine RBC None /hpf (0-2) 07/27/24 10:08 Urine WBC None /hpf (0-5) 07/27/24 10:08 Ur Squamous Epith Cells 25-40 /hpf (0-5) H 07/27/24 10:08 Amorphous Sediment Not Reportable 07/27/24 10:08 Urine Bacteria 1+ /hpf (NONE) H 07/27/24 10:08 All radiology interpretation(s) finalized by discharge Discharge Plan Discharge Patient Disposition: Home Clinical Impression: Gastroenteritis Condition: Stable Prescriptions: New ondansetron HCl 4 mg tablet 4 mg PO Q6H PRN (Reason: nausea and vomiting) Qty: 20 0RF No Action Trulicity 0.75 mg/0.5 mL pen injector 0.75 mg SUBCUT .weekly duloxetine [Cymbalta] 60 mg capsule,delayed release(DR/EC) 60 mg PO BID lisinopril-hydrochlorothiazide 20-25 mg tablet 1 tab PO BID omeprazole 20 mg capsule,delayed release(DR/EC) 20 mg PO PRN PRN (Reason: Acid Reflux) Linzess 72 mcg capsule 144 mcg PO DAILY furosemide 20 mg tablet 20 mg PO QAM alprazolam 0.5 mg tablet 0.25 mg PO BID methocarbamol 500 mg tablet 500 mg PO BID PRN (Reason: Pain) metronidazole 0.75 % gel 1 applic topical BID PRN (Reason: bacteria) Rx Instructions: Apply thin film to entire face twice daily Celebrex 200 mg capsule 200 mg PO BID Qty: 60 3RF clobetasol 0.05 % ointment 1 applic topical BID 14 Days Qty: 60 2RF Rx Instructions: to affected areas on arms no more than 2 wks/mo prn alternating with triamcinolone triamcinolone acetonide 0.1 % ointment 1 applic topical BID Qty: 80 1RF Rx Instructions: Apply to affected areas twice daily for 2 weeks alternating with clobetasol sumatriptan succinate 100 mg tablet See Rx Instructions .ROUTE .COMPLEX Qty: 10 6RF Dose Instruction: TAKE 1 TABLET BY MOUTH EVERY 2 HOURS NEEDED FOR MIGRAINE HEADACHE Rx Instructions: TAKE 1 TABLET BY MOUTH EVERY 2 HOURS NEEDED FOR MIGRAINE HEADACHE Aimovig Autoinjector 140 mg/mL auto-injector See Rx Instructions .ROUTE .COMPLEX Qty: 1 11RF Dose Instruction: ADMINISTER 1 ML UNDER THE SKIN 1 TIME Rx Instructions: ADMINISTER 1 ML UNDER THE SKIN ONCE A MONTH zonisamide 100 mg capsule See Rx Instructions .ROUTE .COMPLEX Qty: 360 0RF Dose Instruction: TAKE 4 CAPSULES BY MOUTH DAILY Rx Instructions: TAKE 4 CAPSULES BY MOUTH DAILY insulin glargine [Lantus U-100 Insulin] 100 unit/mL solution 60 unit SUBCUT BID insulin lispro 100 unit/mL solution See Rx Instructions .ROUTE .COMPLEX Rx Instructions: ;INJECT SUBQ UP TO FOUR TIMES DAILY PER SLIDING SCALE. MAX 80 UNITS DAILY. Fiber Gummies 2 gram Tablet,Chewable 4 g PO DAILY Discharge Orders: Discharge ED (Routine); Ordered 07/27/24 Ordered By: Joni Estrella Referrals: Baron Green [Primary Care Provider] - Discharge Diet: Clear Liquid Discharge Activity: Increase activity as tolerated Patient Instructions: Gastroenteritis (ED), Opioid Safety, Pain Management Activity Restrictions/Additional Instructions: Thank you for choosing [facility] for your healthcare needs today. It is very important that you follow up as instructed or that you return to the Emergency Department should you have concerns or if your condition changes or worsens in any way. You were seen in the emergency room with complaints of nausea and abdominal pain. Laboratory test showed a mildly elevated white count CT of the abdomen did not show any acute abnormalities urine was also normal. Recommend increasing fluid intake you should only use clear liquids for the next 2 to 3 days. Also recommending holding your dulaglutide. Follow-up with your primary care doctor. Coding Level of Care Code ED [employer] Folding Machine Operator for Nelson Singh
--- NOTE | 2024-07-27 09:52 | ECG_ITS ---
[facility] [employer] [facility] Test Date: 2024-07-27 Pat Name: Cathy Mendoza Department: Room: Gender: Female Tannery Gummer: : 1965 Requested By: Joni Sibley Order Number: [id number] Rosa MD: Tung Myers M.D. Measurements Intervals [place] Rate: 97 P: 58 NV: 161 QRS: -51 QRSD: 129 T: 60 QT: 362 QTc: 461 Interpretive Statements SINUS RHYTHM RIGHT BUNDLE BRANCH BLOCK [120+ ms QRS DURATION, UPRIGHT V1, 40+ ms S IN I/aVL/V4/V5/V6] LEFT ANTERIOR FASCICULAR BLOCK [QRS AXIS <= -45, QR IN I, RS IN II] LEFT VENTRICULAR HYPERTROPHY AND ST-T CHANGE [VOLTAGE CRITERIA PLUS ST/T ABNORMALITY] POSSIBLE ANTEROSEPTAL MYOCARDIAL INFARCTION , OF INDETERMINATE AGE [30 ms Q WAVE IN V1-V4] Compared to ECG 09/09/2017 13:22:50 Right bundle-branch block now present..eft anterior fascicular block now present Left ventricular hypertrophy now present.ST (T wave) deviation now present Myocardial infarct finding still present Electronically Signed On 07-27-2024 23:57:41 CDT by Tung Myers M.D. [email or web address]
--- NOTE | 2024-07-27 09:56 | XRR_ITS ---
PROCEDURE INFORMATION: Exam: XR Abdomen Exam date and time: 07/27/2024 10:10 AM Age: 59 years old Clinical indication: Constipation; Additional info: Constipation, abdominal pain TECHNIQUE: Imaging protocol: Radiologic exam of the abdomen. Views: Frontal supine view of the abdomen. 1 View. COMPARISON: CT abdomen pelvis w con* [id number] 02/02/2018 6:59 PM FINDINGS: Gastrointestinal tract: The bowel gas pattern is nonspecific. Gas is distributed throughout the colon. Bones/joints: The patient is post right total hip arthroplasty. Degenerative changes are noted in the bones. XR/XR KUB portable [id number] IMPRESSION: Nonspecific bowel gas pattern.
[2024-07-27 10:15] VITALS: BP 126/86; PULSE 103; RESP 16; O2SAT 92
--- NOTE | 2024-07-27 10:23 | CT_ITS ---
WS: [id number] CT ABDOMEN AND PELVIS WITH CONTRAST HISTORY: abd pain, central and upper abdominal pain with nausea and vomiting. TECHNIQUE: Imaging performed of the abdomen and pelvis with IV contrast. Single phase imaging of the abdomen. Coronal and sagittal reformats are submitted. All CT scans at [facility] use at [address] one of these dose optimization techniques: automated exposure control; mA and/or kV adjustment per patient size (includes targeted exams where dose is matched to clinical indication); or iterative re construction. IV CONTRAST: Omnipaque 350; 100 mL IV. Oral contrast: No DLP: 1401.02 mGy.cm COMPARISON: 02/02/2018 Lower thorax: Lung bases are clear. Heart is normal size. Small hiatal hernia. Liver/biliary system: Slightly enlarged liver. Focal area of decreased attenuation near the gallbladd er fossa is probably focal fatty sparing. Gallbladder: Status post cholecystectomy. Pancreas: Mild pancreatic atrophy. Spleen: Normal size spleen. No mass or infarct. Adrenal glands: Normal. Right kidney: Normal. Left kidney: Normal. Aorta: Normal. Lymphadenopathy: None. Free fluid: None. GI tract: Stomach is markedly distended with fluid. Mild small bowel dilatation. There is small bowel dilatation with fluid with mild hyperemia of the wall. No obstructive pattern. Normal appendix. Mild increased amount of air within the colon. No wall thickening or colitis. Abdominal wall: Multifocal ventral abdominal wall hernia. Hernia extends over a length of 4.8 cm and begins at the level of the umbilicus and extends supraumbilical with several components. Pelvis: No free fluid or adenopathy within the pelvis. Uterus is present with a calcified mass extend ing to the LEFT which is probably a fibroid. Bones: Prior RIGHT hip arthroplasty. CT/CT abdomen pelvis w con* [id number] IMPRESSION: 1. Marked fluid distention of the stomach and mild small bowel hyperemia. Susp ect a mild enteritis. There is no obstruction or mass identified. 2. Prior cholecystectomy. 3. No free air. 4. Umbilical and supraumbilical multifocal abdominal wall hernia containing fa t only. 5. No ascites.
[2024-07-27 10:38] LABS: Bilirubin Urine Negative (Negative); Blood Urine Negative (Negative); Glucose Urine UA Negative (Normal); Ketones Urine Negative (Negative); Leukocyte Esterase Urine Negative (Negative); Nitrate Urine Negative (Negative); Protein Urine Trace (Negative); Specific Gravity, Urine 1.026 (1.005-1.030); Urine Appearance Cloudy (CLEAR); Urine Color Yellow (Yellow); pH Urine 7.5 (5-7)
[2024-07-27 10:48] VITALS: BP 118/73; PULSE 99; RESP 16; O2SAT 97
[2024-07-27 10:53] LABS: Add Urine Culture? No; Add Urine Microscopic? YES; Bacteria Urine 1+ /hpf; Squamous Epithelial Cell Urine 25-40 /hpf (0-5); UA Manual Slide Review YES
[2024-07-27 11:03] VITALS: PULSE 107; O2SAT 95
[2024-07-27 11:10] LABS: Basophils # 0.1 10^3/uL (0.0-0.1); Basophils % 0.4 %; Eosinophils # 0.3 10^3/uL (0.0-0.8); Hematocrit 45.8 % (36-47); Lymphocytes # 1.8 10^3/uL (0.8-4.8); Lymphocytes % 10.8 %; Mean Corpuscular HGB Conc 31.9 g/dL (30-55); Mean Corpuscular Hemoglobin 28.1 pg (27-33); Mean Corpuscular Volume 88.2 fl (85-98); Mean Platelet Volume 8.8 fL (7.4-10.4); Monocytes # 0.8 10^3/uL (0.2-0.9); Monocytes % 4.6 %; Neutrophils # 13.93 10^3/uL (1.8-7.7); Neutrophils % 81.7 %; Nucleated Red Blood Cells % 0 %; Platelet Count 468 10^3/cmm (157-399); Red Blood Count 5.19 10^6/uL (3.85-5.65); Red Cell Distribution Width 14.5 % (12.1-15.1); White Blood Count 17.04 10^3/uL (3.29-11.43)
[2024-07-27] MEDS: iohexol 350 mg/mL 500 mL Btl (per mL) IV (11:20)
[2024-07-27 11:35] LABS: Alanine Aminotransferase 17 U/L (0-33); Albumin Level 4.8 g/dL (3.5-5.2); Alkaline Phosphatase 135 U/L (35-105); Aspartate Amino Transferase 16 U/L (0-32); Blood Urea Nitrogen 22 mg/dL (6-20); Calcium 9.3 mg/dL (8.5-10.5); Carbon Dioxide 29 mmol/L (22-29); Chloride 91 mmol/L (98-107); Creatinine Clr Calc Pharmacy 79.7725; Globulin 3.2 g/dL (1.3-4.6); Glomerular Filtration Rate 57.1 mL/min (90-130); Glucose 202 mg/dL (65-115); Lipase 22 U/L (13-60); Osmolality Calculated 287 mOsm/kg (285-295); Sodium 134 mmol/L (136-145); Total Bilirubin 0.5 mg/dL (0.15-1.2)
[2024-07-27 12:31] VITALS: BP 101/59; PULSE 101; O2SAT 98
== END 2024-07-27 12:32 | disposition home or self-care (01) ==
PROVIDERS: Physician Assistant; Emergency Provider Family Medicine; PCP Family Medicine
DX: K52.9 Noninfective gastroenteritis and colitis, unspecified (principal)
CPT/HCPCS: 36415; 74018; 74177; 80053; 81001; 83690; 85025; 93005; 99285

== ENCOUNTER → 2024-10-14 11:30 | Outpatient (BNVA) | payer MEDICARE, MEDICAID, SELFPAY | PROVIDERS: PCP Family Medicine; Visit Provider Specialist | DX: G43.711 Chronic migraine without aura, intractable, with status migrainosus (principal); M79.7 Fibromyalgia | CPT/HCPCS: 99213 ==

== ENCOUNTER → 2025-02-26 10:01 | Outpatient (BNVA) | payer MEDICARE, MEDICAID, SELFPAY | PROVIDERS: PCP Family Medicine; Visit Provider Internal Medicine | DX: E78.2 Mixed hyperlipidemia (principal); L97.809 Non-pressure chronic ulcer of other part of unspecified lower leg with unspecified severity; Z79.899 Other long term (current) drug therapy | CPT/HCPCS: 99204 ==

== ENCOUNTER 2025-03-15 14:25 | Outpatient (CLI) | payer MEDICARE, MEDICAID, SELFPAY ==
--- NOTE | 2025-03-15 14:39 | XRR_ITS ---
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 . . , PT fell on glass looking for foreign body in soft tissue TECHNIQUE: Imaging protocol: Radiologic exam of the left knee. Views: 3 views. COMPARISON: CR XR foot LT min 3V* [id number] 10/09/2022 10:37 AM FINDINGS: Bones/joints: Normal. No fracture or dislocation. No lytic or sclerotic bone lesions. Soft tissues: Normal. XR/XR knee LT 3V* [id number] IMPRESSION: No acute findings.
== END 2025-03-15 14:26 | disposition home or self-care (01) ==
LOC: RAD 14:28
PROVIDERS: PCP Family Medicine; Visit Provider Thoracic Surgery (Cardiothoracic Vascular Surgery)
DX: M25.562 Pain in left knee (principal); E11.9 Type 2 diabetes mellitus without complications; L97.829 Non-pressure chronic ulcer of other part of left lower leg with unspecified severity; S80.252D Superficial foreign body, left knee, subsequent encounter; W19.XXXD Unspecified fall, subsequent encounter; I96 Gangrene, not elsewhere classified; T81.31XD Disruption of external operation (surgical) wound, not elsewhere classified, subsequent encounter; Y83.8 Other surgical procedures as the cause of abnormal reaction of the patient, or of later complication, without mention of misadventure at the time of the procedure
CPT/HCPCS: 73562; 99213

== ENCOUNTER → 2025-05-21 11:11 | Outpatient (BNVA) | payer MEDICARE, MEDICAID, SELFPAY | PROVIDERS: PCP Family Medicine; Visit Provider Internal Medicine | DX: E11.9 Type 2 diabetes mellitus without complications (principal); E66.9 Obesity, unspecified; E78.2 Mixed hyperlipidemia; Z79.899 Other long term (current) drug therapy | CPT/HCPCS: 99214 ==

== ENCOUNTER → 2025-06-25 08:12 | Outpatient (BNVA) | payer MEDICARE, MEDICAID, SELFPAY | PROVIDERS: PCP Family Medicine; Visit Provider Internal Medicine | DX: E10.65 Type 1 diabetes mellitus with hyperglycemia (principal); E78.2 Mixed hyperlipidemia; L97.809 Non-pressure chronic ulcer of other part of unspecified lower leg with unspecified severity; Z79.4 Long term (current) use of insulin | CPT/HCPCS: 99214 ==

== ENCOUNTER → 2025-07-26 13:03 | Outpatient (BNVA) | payer MEDICARE, MEDICAID, SELFPAY | PROVIDERS: PCP Family Medicine; Visit Provider Nurse Practitioner Family | DX: M54.2 Cervicalgia (principal); M25.511 Pain in right shoulder; G89.29 Other chronic pain; R03.0 Elevated blood-pressure reading, without diagnosis of hypertension | CPT/HCPCS: 99204; 99214 ==

== ENCOUNTER → 2025-08-05 08:56 | Outpatient (BNVA) | payer MEDICARE, MEDICAID, SELFPAY | PROVIDERS: PCP Family Medicine; Visit Provider Nurse Practitioner Family | DX: M79.18 Myalgia, other site (principal); M54.2 Cervicalgia; M25.511 Pain in right shoulder; G89.29 Other chronic pain; R03.0 Elevated blood-pressure reading, without diagnosis of hypertension | CPT/HCPCS: 20553; 99214; J3490 ==

== ENCOUNTER → 2025-09-16 08:32 | Outpatient (BNVA) | payer MEDICARE, MEDICAID, SELFPAY | PROVIDERS: PCP Family Medicine; Visit Provider Nurse Practitioner Family | DX: M54.2 Cervicalgia (principal); G89.29 Other chronic pain; R03.0 Elevated blood-pressure reading, without diagnosis of hypertension; M25.511 Pain in right shoulder | CPT/HCPCS: 99214 ==